=== PATIENT | female | born 1980 | race Hispanic/Latino ===

== ENCOUNTER 2022-08-06 12:49 | Outpatient (CLI) | payer BC | END 2022-08-06 12:50 | disposition home or self-care (01) | LOC: CSHWCC 12:49 | PROVIDERS: ATTEND Nurse Practitioner Family | DX: T81.89XD Other complications of procedures, not elsewhere classified, subsequent encounter (principal) | CPT/HCPCS: 97607; 99203; G0463 ==

== ENCOUNTER 2022-08-09 09:58 | Outpatient (CLI) | payer BC | END 2022-08-09 09:59 | disposition home or self-care (01) | LOC: CSHWCC 09:58 | PROVIDERS: ATTEND Nurse Practitioner Family | DX: T81.89XD Other complications of procedures, not elsewhere classified, subsequent encounter (principal) | CPT/HCPCS: 99212; G0463 ==

== ENCOUNTER 2022-08-16 08:23 | Outpatient (CLI) | payer BC, OTHER | END 2022-08-16 08:24 | disposition home or self-care (01) | LOC: CSHWCC 08:23 | PROVIDERS: ATTEND Surgery | DX: T81.89XD Other complications of procedures, not elsewhere classified, subsequent encounter (principal) | CPT/HCPCS: 99212; G0463 ==

== ENCOUNTER 2022-09-13 12:58 | Outpatient (CLI) | payer BC | END 2022-09-13 12:59 | disposition home or self-care (01) | LOC: CSHWCC 12:58 | PROVIDERS: ATTEND Nurse Practitioner Family | DX: T81.89XD Other complications of procedures, not elsewhere classified, subsequent encounter (principal) ==

== ENCOUNTER 2022-10-04 09:48 | Outpatient (CLI) | payer BC | END 2022-10-04 09:49 | disposition home or self-care (01) | LOC: CSHWCC 09:48 | PROVIDERS: ATTEND Nurse Practitioner Family | DX: T81.89XA Other complications of procedures, not elsewhere classified, initial encounter (principal) | CPT/HCPCS: 99212; G0463 ==

== ENCOUNTER 2023-12-24 05:53 | Day surgery (SDC) | payer OTHER ==
[2023-12-22 14:36] LABS: Hematocrit 35.2 % (34.9-44.5); Hemoglobin 12.2 g/dL (12.0-15.5); Mean Corpuscular HGB CONC 34.7 g/dL (32.0-36.0); Mean Corpuscular Hemoglobin 31.4 pg (27.0-33.0); Mean Corpuscular Volume 90.7 fL (81.6-98.3); Mean Platelet Volume 8.7 fL (7.4-10.4); Platelet Count 217 10x3/uL (150-450); RBC Distribution Width 13.4 % (11.5-14.5); Red Blood Cell (RBC) Count 3.88 10x6/uL (3.90-5.03); White Blood Cell (WBC) Count 4.3 10x3/uL (3.5-10.5)
[2023-12-22 15:02] LABS: BHCG - Serum Negative (NEGATIVE); Pregs Control Background? CLEAR/WHITE (CLR/WHITE); Pregs Control Bar Appear? YES (CONTROL BAR)
[2023-12-22 16:04] VITALS: BMI 31.5
[2023-12-24] MEDS ORDERED: Gabapentin 300 MG CAP ONE (06:13)
[2023-12-24] MEDS ORDERED: Famotidine/PF 20 mg/2ml Vial ONE (06:13)
[2023-12-24] MEDS ORDERED: CeleCOXIB 100 MG CAP ONE (06:13)
[2023-12-24] MEDS ORDERED: EPINEPHrine 1 MG/ML VIAL ONE (06:45)
[2023-12-24] MEDS ORDERED: Bupivacaine PF 0.5% 30 ML VIAL ONE (06:45)
[2023-12-24] MEDS ORDERED: Sevoflurane 250 ML INH ANEST BOTTLE ONE (06:54)
[2023-12-24] MEDS ORDERED: fentaNYL 50 mcg/mL 1 mL Vial ONE ×2 (07:34→10:58)
[2023-12-24] MEDS ORDERED: Rocuronium Bromide 10 MG/ML (10ML VIAL) ONE ×2 (07:34→10:08)
[2023-12-24] MEDS ORDERED: Lidocaine 1% PF 5 ML VIAL ONE ×2 (07:34→10:08)
[2023-12-24] MEDS ORDERED: PROPOFOL 20 ML ONE (07:34)
[2023-12-24] MEDS ORDERED: CEFAZOLIN 2 GM VIAL ONE (08:35)
[2023-12-24] MEDS ORDERED: Midazolam HCl 2 mg/2 ml Vial ONE (08:51)
[2023-12-24] MEDS ORDERED: Ondansetron PF 4 MG/2 ML Vial ONE (09:11)
[2023-12-24] MEDS ORDERED: Dexamethasone 4 mg/ml Vial ONE (09:11)
[2023-12-24] MEDS ORDERED: HYDROcodone/Acetaminophen 5/325 mg Tablet ONE (11:54)
== END 2023-12-24 13:10 | disposition home or self-care (01) ==
LOC: CSHSDC 05:53
PROVIDERS: ATTEND Obstetrics & Gynecology
PROC: 0UT9FZZ Resection of Uterus, Via Natural or Artificial Opening With Percutaneous Endoscopic Assistance (ICD-10-PCS; principal; 2023-12-24)
DX: N72 Inflammatory disease of cervix uteri (principal); Z79.899 Other long term (current) drug therapy; Z85.3 Personal history of malignant neoplasm of breast; Z98.890 Other specified postprocedural states
CPT/HCPCS: 84703; 85027; 86850; 86900; 86901; 88307; J0171; J0665; J1100; J2250; J2405; J2704; J3010; J3490